=== PATIENT | female | born 1955 ===

== ENCOUNTER 2016-11-22 13:15 | Emergency (ER) | payer MEDICARE ==
[2016-11-22 13:20] VITALS: BP 147/89; PULSE 75; RESP 18; TEMP 99.2; O2SAT 100
[2016-11-22 14:02] LABS: RBC URINE 20 /hpf (0-3); URINE BILIRUBIN NEGATIVE (NEGATIVE); URINE BLOOD 1+ (NEGATIVE); URINE COLOR Yellow (YELLOW); URINE GLUCOSE (UA) NORMAL (Normal); URINE KETONE TRACE mg/dL (NEGATIVE); URINE LEUKOCYTE ESTERASE NEG Leu/uL (Negative); URINE PROTEIN 1+ mg/dL (NEGATIVE); URINE UROBILINOGEN NORMAL mg/dL (0.2-1.0); WBC URINE 1 /hpf (0-5)
--- NOTE | 2016-11-22 16:16 | C.PDOC ---
History Of Present Illness 61 yr old female presents to the ER with complaints of pain with urination for the past 4 days and skin irritation for the past 2 days. Patient denies fever, chills, chest pain, SOB, nausea, vomiting, abdominal pain, diarrhea, constipation, hematuria, frequency, incontinence, weakness or numbness. Time Seen by Provider: 11/22/16 13:30 Chief Complaint (Nursing): Female Genitourinary History Per: Patient History/Exam Limitations: no limitations Onset/Duration Of Symptoms: Days Past Medical History Reviewed: Historical Data, Nursing Documentation, Vital Signs Vital Signs: Last Vital Signs Temp 99.2 F 11/22/16 13:19 Pulse 75 11/22/16 13:19 Resp 18 11/22/16 13:19 BP 147/89 11/22/16 13:19 Pulse Ox 100 11/22/16 16:18 - Medical History PMH: Osteoporosis Family History: States: No Known Family Hx - Social History Hx Alcohol Use: No Hx Substance Use: No Review Of Systems Except As Marked, All Systems Reviewed And Found Negative. Constitutional: Negative for: Fever, Chills Cardiovascular: Negative for: Chest Pain Respiratory: Negative for: Shortness of Breath Gastrointestinal: Negative for: Nausea, Vomiting, Abdominal Pain, Diarrhea, Constipation Genitourinary: Positive for: Dysuria. Negative for: Frequency, Incontinence, Hematuria Skin: Positive for: Other (Skin irritation ) Neurological: Negative for: Weakness, Numbness Physical Exam - Physical Exam Appears: Well, Non-toxic, No Acute Distress Skin: Warm, Dry, Other (Right buttock/Right labial visicular rash noted. Painful to touch. No active discharge noted. ) Head: Atraumatic, Normacephalic Oral Mucosa: Moist Gastrointestinal/Abdominal: Normal Exam, Soft, No Tenderness, No Guarding, Rebound Extremity: Normal ROM, No Swelling Neurological/Psych: Oriented x3, Normal Speech, Normal Motor ED Course And Treatment O2 Sat by Pulse Oximetry: 100 Medical Decision Making Medical Decision Making: PLAN: * Urinalysis Disposition - Disposition Referrals: Andria Mckeon, [Non-Staff] - Disposition: HOME/ ROUTINE Disposition Time: 13:45 Condition: GOOD Additional Instructions: Thank you for letting us take care of you today. Your provider was Dr. Mackenzie. You were treated for zoster and cellulitis. The emergency medical care you received today was directed at your acute symptoms. If you were prescribed any medication, please fill it and take as directed. It may take several days for your symptoms to resolve. Return to the Emergency Department if your symptoms worsen, do not improve, or if you have any other problems. Please contact your doctor or call one of the physicians/clinics you have been referred to that are listed on the Patient Visit Information form that is included in your discharge packet. Bring any paperwork you were given at discharge with you along with any medications you are taking to your follow up visit. Our treatment cannot replace ongoing medical care by a primary care provider (PCP) outside of the emergency department. Thank you for allowing the [facility] team to be part of your care today. Follow up with your doctor in 2-3 days for re-evaluated. Prescriptions: Bacitracin/Neomycin/Polymyxin [Neosporin Triple Antibiotic Oint] 1 ml TP BID #1 tube Cephalexin [cephalexin] 500 mg PO Q6 #28 cap valACYclovir [Valtrex] 1 gm PO Q8 #21 tab Instructions: Shingles (ED), Cellulitis (ED) - Clinical Impression Clinical Impression: Shingles - Scribe Statement The provider has reviewed the documentation as recorded by the Fidel Ramírez Provider Attestation: All medical record entries made by the Fidel were at my direction and personally dictated by me. I have reviewed the chart and agree that the record accurately reflects my personal performance of the history, physical exam, medical decision making, and the department course for this patient. I have also personally directed, reviewed, and agree with the discharge instructions and disposition.
== END 2016-11-22 14:26 | disposition home or self-care (01) ==
LOC: C.ER 13:15
DX: B02.9 Zoster without complications (principal)